=== PATIENT | male | born 1995 | race American Indian/Alaskan Native ===

== ENCOUNTER 2019-08-21 11:56 | Emergency (ER) | payer SELFPAY ==
[2019-08-21 12:05] VITALS: BP 128/84
--- NOTE | 2019-08-21 12:12 | Emergency Department Report ---
Blank Doc - Documentation Documentation: 23-year-old male that presents with URI and fever symptoms. This initial assessment/diagnostic orders/clinical plan/treatment(s) is/are subject to change based on patient's health status, clinical progression and re- assessment by fellow clinical providers in the ED. Further treatment and workup at subsequent clinical providers discretion. Patient/guardians urged not to elope from the ED as their condition may be serious if not clinically assessed and managed. Initial orders include: 1- Patient sent to [facility] for further evaluation and treatment 2- xrays
--- NOTE | 2019-08-21 12:51 | XRay Report ---
CHEST 2 VIEWS INDICATION: cough. COMPARISON: None FINDINGS: Support devices: None. Heart: Within normal limits. Lungs/pleura: No acute air space or interstitial disease. No pneumothorax. Additional findings: None. IMPRESSION: No acute findings. Signer Name: Mahad Mccall Jr, MD Signed: 08/21/2019 12:47 PM Workstation Name: [id number]
[2019-08-21] MEDS ORDERED: ALBUTEROL 2.5 MG/3 ML NEBU IH ONE (13:09)
[2019-08-21] MEDS ORDERED: predniSONE 20 MG TAB PO ONE (13:09)
--- NOTE | 2019-08-21 13:13 | Emergency Department Report ---
Minor Respiratory - HPI Chief Complaint: Upper Respiratory Infection Stated Complaint: FLU SYM Time Seen by Provider: 08/21/19 12:12 Duration: 2 Days Pain Location: Chest Severity: mild Minor Respiratory: Yes Rhinorrhea, Yes Able to Tolerate Fluids, Yes Cough, No Sore Throat, No Ear Pain, No Sick Contacts, No Hemoptysis, No Chest Pain, No Shortness of Breath, No Fever Other History: Patient is a 23-year-old -[place] male that comes to the ER with cold cough and congestion for several days. Patient endorses chills but no fever on exam in triage. Patient is wheezing on exam. Patient denies history of asthma. Chest x-ray as ordered by LEIF in triage is normal. ED Review of Systems ROS: Stated complaint: FLU SYM Other details as noted in HPI Comment: All other systems reviewed and negative ED Past Medical Hx - Past Medical History Previous Medical History?: No - Surgical History Past Surgical History?: No Additional Surgical History: Tonsilectomy - Family History Family history: no significant - Social History Smoking Status: Current Every Day Smoker Substance Use Type: None - Medications Home Medications: Home Medications Medication Instructions Recorded Confirmed Last Taken Type Albuterol INH(or & Nicu Only) 2 puff IH QID PRN #1 inhalation 08/21/19 Unknown Rx [ProAir HFA Inhaler] Azithromycin [Zithromax Z-BRIDGER] 250 mg PO DAILY #6 tablet 08/21/19 Unknown Rx predniSONE [Deltasone] 20 mg PO DAILY #5 tablet 08/21/19 Unknown Rx Minor Respiratory Exam - Exam General: Vital signs noted. No distress. Alert and acting appropriately. HEENT: Yes Moist Mucous Membranes, No Pharyngeal Erythema, No Pharyngeal Exudates, No Rhinorrhea, No Conjuctival Injection, No Frontal Tenderness, No Maxillary Tenderness Ear: Neither TM Bulge, Neither TM Erythema, Neither EAC Pain, Neither EAC Discharge Neck: Yes Supple, No Adenopathy Lungs: Yes Good Air Exchange, Yes Wheezes, No Ronchi, No Stridor, No Cough, No Labored Respirations, No Retractions, No Use of Accessory Muscles, No Other Abnormal Lung Sounds Heart: Yes Regular, No Murmur Abdomen: Yes Normal Bowel Sounds, No Tenderness, No Peritoneal Signs Skin: No Rash, No Edema Neurologic: Alert and oriented, no deficits. Musculoskeletal: Unremarkable. ED Course Vital Signs 03/03/20 12:04 Temperature 99.3 F Pulse Rate 69 Respiratory 18 Rate Blood Pressure 128/84 [Right] O2 Sat by Pulse 95 Oximetry ED Medical Decision Making - Radiology Data Radiology results: report reviewed, image reviewed NEG - Medical Decision Making XRAY NAP MEDICATED WITH PREDNISONE AND ALBUTEROL IN ER WITH DEC WHEEZING DC HOME WITH DC POC AND PCP FOLLOW UP Vital Signs 08/21/19 12:04 Temperature 99.3 F Pulse Rate 69 Respiratory 18 Rate Blood Pressure 128/84 [Right] O2 Sat by Pulse 95 Oximetry - Differential Diagnosis ro pna Critical care attestation.: If time is entered above; I have spent that time in minutes in the direct care of this critically ill patient, excluding procedure time. ED Disposition Clinical Impression: URTI (acute upper respiratory infection), Wheezing Disposition: DC-01 TO HOME OR SELFCARE Is pt being admited?: No Does the pt Need Aspirin: No Condition: Stable Instructions: Upper Respiratory Infection (ED) Additional Instructions: meds as ordered today follow up with pcp in 48 hours to be sure you are getting better referral below Prescriptions: predniSONE [Deltasone] 20 mg PO DAILY #5 tablet Albuterol INH(or & Nicu Only) [ProAir HFA Inhaler] 2 puff IH QID PRN #1 inhalation PRN Reason: Shortness Of Breath Azithromycin [Zithromax Z-BRIDGER] 250 mg PO DAILY #6 tablet Referrals: LA SOOD MD [Staff Physician] - 3-5 Days Time of Disposition: 13:11
== END 2019-08-21 14:33 | disposition home or self-care (01) ==
LOC: ED 11:56
DX: J06.9 Acute upper respiratory infection, unspecified (principal); R06.2 Wheezing; F17.200 Nicotine dependence, unspecified, uncomplicated; Z79.899 Other long term (current) drug therapy; Z90.49 Acquired absence of other specified parts of digestive tract
CPT/HCPCS: 71046; 94640; 99283; J7512; 94644

== ENCOUNTER 2022-01-30 15:09 | Emergency (ER) | payer SELFPAY | END 2022-02-01 02:01 | disposition left against medical advice (07) | LOC: ED 15:09 | DX: Z00.00 Encounter for general adult medical examination without abnormal findings (principal); Z53.21 Procedure and treatment not carried out due to patient leaving prior to being seen by health care provider ==